=== PATIENT | female | born 2000 | race Caucasian/White ===

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

== ENCOUNTER 2021-01-11 04:02 | Inpatient (IN) | payer BC, SELFPAY ==
[2021-01-11] VITALS (134 sets, daily range): BP systolic 105–153; BP diastolic 38–118; PULSE 61–111; RESP 16–18; TEMP 36.4–37.2; O2SAT 97–100; BMI 23.4
--- NOTE | 2021-01-11 04:44 | LDADM ---
This patient, Diane Norris, was admitted to Labor/Delivery/Recovery 103 on 01/11/21 at 04:02. Plans for labor, pain management and were discussed with patient. Patient/family oriented to hospital policies and general routines including ID bracelet, bed and alarms, visiting hours, pain management, procedures, bathroom and other care routines, personal items, smoking policy, room service/diet and guest tray routines, infant security routines, and visiting hours. Patient/Family are encouraged to report perceived risks to care and to ask questions if they do not understand what they are told or what they should do. See OBIX for further documentation.
[2021-01-11 04:46] LABS: Basophils Percent Auto 0.3 % (0.2-1.2); Eosinophils Absolute Auto 0.2 K/mm3 (0-0.3); Eosinophils Percent Auto 1.8 % (0-4.4); Hematocrit 38.9 % (37.0-47.0); Hemoglobin 12.8 g/dL (12.0-15.0); Immature Granulocyte Absolute 0.06 K/mm3 (0.00-0.031); Immature Granulocyte Percent A 0.6 % (0-0.5); Lymphocytes Absolute Auto 2.11 K/mm3 (0.9-3.2); Lymphocytes Percent Auto 22.4 % (18.3-44.2); Mean Corpuscular HGB Conc 32.9 g/dl (32-36); Mean Corpuscular Hemoglobin 28.3 pg (26-34); Mean Corpuscular Volume 85.9 fl (80-100); Mean Platelet Volume 10.5 fl (7.4-10.4); Monocytes Absolute Auto 0.8 K/mm3 (0.1-0.6); Monocytes Percent Auto 8.3 % (2.6-8.5); Neutrophils Absolute Auto 6.3 K/mm3 (1.3-6.7); Neutrophils Percent Auto 66.6 % (45.5-73.1); Platelet Count Result 202 k/mm3 (150-375); Red Blood Count 4.53 M/mm3 (4.2-5.4); Red Cell Distribution Width 16.4 % (11.5-14.5); White Blood Count 9.4 K/mm3 (4.5-10.0)
[2021-01-11] MEDS: LACTATED RINGERS 1,000 ML 125 ML IV CONT (05:00)
--- NOTE | 2021-01-11 05:13 | WPDANESEPP ---
Anes - Eval Pre Procedure Procedure: Labor epidural Date/Time: 01/11/21 05:13 Surgeon: Radha Preop Diagnosis: Abd pain with contractions Pre Op Diagnosis: IOL Patient Data Age: 20 Gender: F Height: 5 ft 9 in Weight: 72 kg Last Vital Signs Pulse 77 01/11/21 05:01 BP 131/95 H 01/11/21 05:01 Pulse Ox 100 01/11/21 05:12 Allergies Allergy/AdvReac Type Severity Reaction Status Date / Time No Known Allergies Allergy Verified 07/01/19 12:13 Laboratory Tests 01/11/21 01/11/21 01/11/21 04:33 04:33 04:33 WBC 9.4 K/mm3 K/mm3 (4.5-10.0) RBC 4.53 M/mm3 M/mm3 (4.2-5.4) Hgb 12.8 g/dL g/dL (12.0-15.0) Hct 38.9 % % (37.0-47.0) MCV 85.9 fl fl (80-100) MCH 28.3 pg pg (26-34) MCHC 32.9 g/dl g/dl (32-36) RDW 16.4 % H % (11.5-14.5) Plt Count 202 k/mm3 k/mm3 (150-375) MPV 10.5 fl H fl (7.4-10.4) Immature Gran % (Auto) 0.6 % H % (0-0.5) Neut % (Auto) 66.6 % % (45.5-73.1) Lymph % (Auto) 22.4 % % (18.3-44.2) [place] % (Auto) 8.3 % % (2.6-8.5) Eos % (Auto) 1.8 % % (0-4.4) Baso % (Auto) 0.3 % % (0.2-1.2) Lymph # (Auto) 2.11 K/mm3 K/mm3 (0.9-3.2) [place] # (Auto) 0.8 K/mm3 H K/mm3 (0.1-0.6) Eos # (Auto) 0.2 K/mm3 K/mm3 (0-0.3) Baso # (Auto) 0.0 K/mm3 K/mm3 (0.0-0.1) Abs Immat Gran (auto) 0.06 K/mm3 H K/mm3 (0.00-0.031) Absolute Neuts (auto) 6.3 K/mm3 K/mm3 (1.3-6.7) Absolute Nucleated RBC 0.0 K/mm3 K/mm3 (0.0-0.012) Nucleated RBC % 0.0 % % (0.0-0.2) RPR Pending HIV 1&2 Ab/P24 Ag 4thGn Pending Patient hx anesthesia problems: none Family hx anesthesia problems: none [facility] Past Medical History Medical History and not yet delivered Family History Family History Other Family history of alcoholism Social History Social History Smoking packs per day: 1 Smoking cigarettes per day: 20.0 Years smoked: 3 Smoking pack-years: 3.00 Smoking status: Former smoker Tobacco type: cigarettes Second hand tobacco smoke exposure: No Smoking end date: 07/27/20 Alcohol intake: never Substance use: never Gender identity (if verbalized by the patient): Female Sexual Orientation (if Verbalized by the Patient): Straight or Heterosexual Spiritual care concerns: No Exam Day of Procedure 01/11/21 05:13 Patient weight: normal Airway: Mallampati scale class II Neurological: alert and oriented
[2021-01-11 05:46] LABS: HIV 1/2 Ab P24 Ag Result Negative (Negative)
[2021-01-11] MEDS: OXYTOCIN 30 UNITS/NS 500 ML 30 UNITS/500 ML BAG 6 UNITS IV CONT (07:35)
[2021-01-11] MEDS: OXYTOCIN 30 UNITS/NS 500 ML 30 UNITS/500 ML BAG 125 UNITS IV CONT (08:18)
[2021-01-11 08:24] LABS: Rapid Plasma Reagin Non-Reactive (NonReactive)
--- NOTE | 2021-01-11 08:40 | WPDOBADMIT ---
Obstetrics - Admit Note Admission Note: record reviewed. No pertinent additions to the history and/or any subsequent changes in the physical findings that are not consistent with the expected course of the were found. Additions to the history and/or subsequent changes in the physical findings follow. Here for labor. 9 cm on arrival. AROM and complete at 0700. clear fluid noted. FHTs reactive.
--- NOTE | 2021-01-11 08:44 | PM.OBPRVD ---
OB - Delivery Note Procedure Delivery date: 01/11/21 Procedure: Intrapartal events: None Induction method: none Delivery monitor: external FHT and external uterine Route of delivery: Laceration Description: Periurethral and Vaginal - 1st Degree Delivery repair: vicryl (3-0) Specimen: Yes (placenta very small) Quantitative Blood Loss (ml): 250 Anesthesia type: Epidural Disposition: floor [place] Baby Date of : 01/11/21 Weeks of gestation at delivery: 39 Infant gender: Male Weight (pounds): 5 Weight (ounces): 4 presentation: vertex position: Left Occiput Anterior Placenta delivery description: Spontaneous cord vessel description: 3 Vessels score one minute: 8 score five minutes: 9
--- NOTE | 2021-01-11 08:45 | P.DS_ITS ---
DS: Admitting Diagnosis Admitting Diagnosis Admitting Diagnosis: IUP 39 wks labor DS: Discharge Diagnosis Discharge Diagnosis (1) 39 weeks gestation of : Code(s): Z3A.39 - 39 weeks gestation of Status: Acute (2) (normal spontaneous vaginal delivery): Code(s): O80 - Encounter for full-term uncomplicated delivery Status: Acute OB - DS: Summary OB Procedures : Ultrasound OB Procedures Intrapartum: Spontaneous Vag Delivery OB Procedures: : None Peripartum Data Infant Delivery Method: Natural Vaginal Laceration Description: Periurethral and Vaginal - 1st Degree complications: none Status at Discharge Functional status at discharge: independent ambulation Overall status at discharge: patient is progressing back to baseline Time Spent with Patient Time attestation: Total time spent providing and/or coordinating discharge services: DS: Data Data Completed and Pending Labs on day of discharge: Labs from last 24 hours 01/11/21 01/11/21 01/11/21 04:33 04:33 04:33 WBC RBC Hgb Hct MCV MCH MCHC RDW Plt Count MPV Immature Gran % (Auto) Neut % (Auto) Lymph % (Auto) [place] % (Auto) Eos % (Auto) Baso % (Auto) Lymph # (Auto) [place] # (Auto) Eos # (Auto) Baso # (Auto) Abs Immat Gran (auto) Absolute Neuts (auto) Absolute Nucleated RBC Nucleated RBC % RPR Non-reactive HIV 1&2 Ab/P24 Ag 4thGn Negative Blood Type B Positive Antibody Screen Negative 01/11/21 04:33 WBC 9.4 RBC 4.53 Hgb 12.8 Hct 38.9 MCV 85.9 MCH 28.3 MCHC 32.9 RDW 16.4 H Plt Count 202 MPV 10.5 H Immature Gran % (Auto) 0.6 H Neut % (Auto) 66.6 Lymph % (Auto) 22.4 [place] % (Auto) 8.3 Eos % (Auto) 1.8 Baso % (Auto) 0.3 Lymph # (Auto) 2.11 [place] # (Auto) 0.8 H Eos # (Auto) 0.2 Baso # (Auto) 0.0 Abs Immat Gran (auto) 0.06 H Absolute Neuts (auto) 6.3 Absolute Nucleated RBC 0.0 Nucleated RBC % 0.0 RPR HIV 1&2 Ab/P24 Ag 4thGn Blood Type Antibody Screen Discharge Plan Discharge Attending physician on discharge: Lilly Garcia Discharging Clinician: Lilly Garcia Anticipated Discharge Date/Time: 01/13/21 08:46 Patient Disposition: Home, Self-Care Activity: may shower and pelvic rest Diet: regular Patient Instructions: Antibiotic Form Stand Alone Forms: General Discharge Information Follow-up/Referrals: Lilly Garcia MD [Physician] - 6 Weeks Discharge Medications: New norethindrone (contraceptive) 0.35 mg tablet 0.35 mg PO DAILY Qty: 28 RF: 6 Date of admission: 01/11/21 04:02 Primary Care Provider: PHYSICIAN,INFUSION RN Admitting Provider: Lilly Garcia Attending physician on admission: Lilly Garcia Condition: Stable
--- NOTE | 2021-01-11 12:52 | PC.NURSE ---
Patient transferred to post room #279 per wheelchair from labor and delivery. Support person present. Oriented to unit, room, information board, rooming in, admission packet and security measures. Patient verbalizes understanding.
--- NOTE | 2021-01-11 13:31 | PCCCNOTE ---
Care Coordination note. Patient referred to care Coordination for teen . Met with pt. and FOB at bedside. Pt. reports this is first baby. She reports being setup with WIC in [place]. She had baby shower and has all baby supplies including crib/bassinet. She reports having good family support as well. She plans to return home with FOB at discharge. She denies any other center or resource information.
[2021-01-11] MEDS: IBUPROFEN 600 MG TABLET PO (21:35)
[2021-01-12 02:45] VITALS: BP 112/70; PULSE 65; RESP 18; TEMP 36.4; O2SAT 99
[2021-01-12 05:20] LABS: Hematocrit 31.1 % (37.0-47.0)
[2021-01-12] MEDS: IBUPROFEN 600 MG TABLET PO (07:42)
[2021-01-12] MEDS: DOCUSATE SODIUM 100 MG CAPSULE PO (07:42)
[2021-01-12] MEDS: MULTIVIT/MIN/PREN/FOL AC/IRON TABLET 1 TAB PO (07:42)
[2021-01-12 08:00] VITALS: BP 113/67; PULSE 73; RESP 18; TEMP 36.8; O2SAT 96
--- NOTE | 2021-01-12 10:46 | P.PNOB_ITS ---
OB - PN: Subj Subjective Date/time seen: 01/12/21 10:46 Patient comments: no complaints and pain well controlled baby status: doing well OB - PN: Obj Data Labs CBC & Chem 7: 01/12/21 05:09 Labs: Laboratory Results - last 24 hr 01/12/21 05:09 Hgb 10.0 L Hct 31.1 L OB - PN A/P Plan day: 1 Plan: routine care, discharge home, follow up 6 weeks and other (plans micronor) Time Spent With Patient Time: Total time spent is greater than 50% in coordination of care (as document ed) at patient's floor/unit and/or counseling patient: Exam : Bimanual exam- vagina & uterus: other (Uterus firm, nt @U)
--- NOTE | 2021-01-12 13:25 | WPDANLDPN2 ---
Anes-Prog Note L&D Date/Time: 01/12/21 13:25 Comfortable throughout: labor and delivery Neuraxial method: epidural Epidural/Spinal procedure site: clean & non-tender Neuro status: Neuro function grossly intact. Cardiovascular status: normal Respiratory status: normal Airway patency: baseline Mental status: baseline Post-Op hydration status: normal Vital Signs: Last Vital Signs Temp 36.8 C 01/12/21 08:00 Pulse 73 01/12/21 08:00 Resp 18 01/12/21 08:00 BP 113/67 01/12/21 08:00 Pulse Ox 96 01/12/21 08:00 Pain score (VAS): 0 I/O: Intake & Output 01/11/21 01/12/21 01/12/21 23:59 07:59 15:59 Intake Total 350 Balance 350 Post-procedural complaints: none Patient feedback: Patient satisfied with anesthetic care.
[2021-01-14 08:32] VITALS: BP 105/73; PULSE 88; RESP 20; TEMP 36.9; O2SAT 100
== END 2021-01-12 17:05 | disposition home or self-care (01) | DRG 807 ==
LOC: ANHLDR 08:46 → ANHOB2 13:03
PROVIDERS: Admitting Provider Obstetrics & Gynecology Gynecology; Visit Provider Obstetrics & Gynecology Gynecology
DX: O69.81X0 Labor and delivery complicated by cord around neck, without compression, not applicable or unspecified (principal); Z37.0 Single live birth; O70.0 First degree perineal laceration during delivery; O71.82 Other specified trauma to perineum and vulva; Z3A.39 39 weeks gestation of pregnancy
CPT/HCPCS: 36415; 85014; 85018; 85025; 86592; 86703; 86850; 86900; 86901; 88307; A9270; G0432; J2590; J2795; J7120